=== PATIENT | female | born 1985 | race African-American/Black ===

== ENCOUNTER 2016-10-12 11:55 | Emergency (ER) | payer BC ==
[2016-10-12] MEDS ORDERED: ACETAMINOPHEN 325 MG TABLET PO ONE (12:54)
--- NOTE | 2016-10-12 12:54 | ER Document Report ---
ED Medical Screen (RME) - General Stated Complaint: BACK PAIN Time seen by provider: 12:54 Mode of Arrival: Ambulatory Information source: Patient Notes: 31-year-old female picked up her son yesterday at 2:30 in the afternoon causing a strain to her left lower thoracic lumbar back. She took Motrin this morning. Hurts when she moves. I have greeted and performed a rapid initial assessment of this patient. A comprehensive ED assessment, evaluation of the patient, analysis of test results , and completion of the medical decision making process will be contacted by additional ED providers. TRAVEL OUTSIDE OF THE [place] IN LAST 30 DAYS: No - Related Data Allergies/Adverse Reactions: amoxicillin [Amoxicillin] Adverse Reaction (Verified 10/12/16 12:53) Past Medical History Past Surgical History: Reports: Hx Section - Immunizations Immunizations up to date: Yes Hx Diphtheria, Pertussis, Tetanus Vaccination: Yes - 2007 Physical Exam - Vital signs Vitals: Temp Pulse Resp BP Pulse Ox 98.4 F 68 14 115/64 100 10/12/16 12:04 10/12/16 12:04 10/12/16 12:04 10/12/16 12:04 10/12/16 12:04 Course - Vital Signs Vital signs: Temp Pulse Resp BP Pulse Ox 98.4 F 68 14 115/64 100 10/12/16 12:04 10/12/16 12:04 10/12/16 12:04 10/12/16 12:04 10/12/16 12:04
--- NOTE | 2016-10-12 14:45 | ER Document Report ---
ED Neck/Back Problem - General Chief Complaint: Back Pain Stated Complaint: BACK PAIN Mode of Arrival: Ambulatory Notes: 31-year-old female presents to ED for back pain and lower back after picking up her son yesterday about 2:30 in the afternoon. She states she took some 400 mg Motrin this morning and her back still hurts some. TRAVEL OUTSIDE OF THE [place] IN LAST 30 DAYS: No - HPI Patient complains to provider of: Pain, Injury, Lower back Onset: Yesterday Where: Home, Indoors Onset: Sudden Timing: Better Quality of pain: Achy, Sharp Severity: Moderate Pain Level: 3 Context: Lifting Recent injury: Yes Associated symptoms: Lower back pain. denies: Incontinence, Motor loss, Numbness/tingling, Radiation to leg, Sensory loss, Unable to urinate Exacerbated by: Movement of trunk Relieved by: Nothing Similar symptoms previously: Yes Recently seen / treated by doctor: No - Related Data Allergies/Adverse Reactions: amoxicillin [Amoxicillin] Adverse Reaction (Verified 10/12/16 12:53) Past Medical History - General Information source: Patient - Social History Smoking Status: Never Smoker Cigarette use (# per day): No Chew tobacco use (# tins/day): No Smoking Education Provided: No Frequency of alcohol use: None Drug Abuse: None Occupation: call center Lives with: Family Family History: DM, Malignancy Patient has suicidal ideation: No Patient has homicidal ideation: No - Past Medical History Cardiac Medical History: Reports: None Pulmonary Medical History: Reports: None EENT Medical History: Reports: None Neurological Medical History: Reports: None Endocrine Medical History: Reports: None Renal/ Medical History: Reports: None Malignancy Medical History: Reports: None GI Medical History: Reports: None Musculoskeltal Medical History: Reports None Skin Medical History: Reports None Psychiatric Medical History: Reports: None Traumatic Medical History: Reports: None Infectious Medical History: Reports: None Past Surgical History: Reports: Hx Section - Immunizations Immunizations up to date: Yes Hx Diphtheria, Pertussis, Tetanus Vaccination: Yes - 2007 Review of Systems - Review of Systems Constitutional: No symptoms reported EENT: No symptoms reported Cardiovascular: No symptoms reported Respiratory: No symptoms reported Gastrointestinal: No symptoms reported Genitourinary: No symptoms reported Female Genitourinary: No symptoms reported Musculoskeletal: Back pain Skin: No symptoms reported Hematologic/Lymphatic: No symptoms reported Neurological/Psychological: No symptoms reported -: Yes All other systems reviewed and negative Physical Exam - Vital signs Vitals: Temp Pulse Resp BP Pulse Ox 98.4 F 68 14 115/64 100 10/12/16 12:04 10/12/16 12:04 10/12/16 12:04 10/12/16 12:04 10/12/16 12:04 Interpretation: Normal - General General appearance: Appears well, Alert - HEENT Head: Normocephalic, Atraumatic Eyes: Normal Pupils: PERRL - Respiratory Respiratory status: No respiratory distress Chest status: Nontender Breath sounds: Normal Chest palpation: Normal - Cardiovascular Rhythm: Regular Heart sounds: Normal auscultation Murmur: No - Abdominal Inspection: Normal Distension: No distension Bowel sounds: Normal Tenderness: Nontender Organomegaly: No organomegaly - Back Back: Normal, Tender - Tender bilateral muscle lower back. No: Deformity/step- off, CVA tenderness, Vertebra tenderness, Scars, Scoliosis, Wounds - Extremities General upper extremity: Normal inspection, Nontender, Normal color, Normal ROM , Normal temperature General lower extremity: Normal inspection, Nontender, Normal color, Normal ROM , Normal temperature, Normal weight bearing. No: Wyatt's sign - Neurological Neuro grossly intact: Yes Cognition: Normal Orientation: AAOx4 [place] Coma Scale Eye Opening: Spontaneous [place] Coma Scale Verbal: Oriented [place] Coma Scale Motor: Obeys Commands [place] Coma Scale Total: 15 Speech: Normal Cranial nerves: Normal Cerebellar coordination: Normal Motor strength normal: LUE, RUE, LLE, RLE Additional motor exam normals: Equal grocery bagger Babinski reflex: Normal (flexor plantar) Sensory: Normal Biceps - Reflex grade: 2 = Normal Triceps - Reflex grade: 2 = Normal Brachioradialis - Reflex grade: 2 = Normal Knee - Reflex grade: 2 = Normal - Psychological Associated symptoms: Normal affect, Normal mood - Skin Skin Temperature: Warm Skin Moisture: Dry Skin Color: Normal Course - Vital Signs Vital signs: Temp Pulse Resp BP Pulse Ox 98.4 F 68 14 115/64 100 10/12/16 12:04 10/12/16 12:04 10/12/16 12:04 10/12/16 12:04 10/12/16 12:04 Discharge - Discharge Clinical Impression: Back pain Qualifiers: Back pain location: low back pain Chronicity: acute Back pain laterality: bilateral Sciatica presence: without sciatica Qualified Code(s): M54.5 - Low back pain Condition: Stable Disposition: HOME, SELF-CARE Instructions: Stretching Exercises for the Back (OM), Use of Knvk-Krb-Kybljaf Ibuprofen (OM), Family Physicians / Practices Additional Instructions: LOW BACK PAIN: Three out of every four people will have an episode of disabling back pain during their lifetime. Most commonly the pain is due to straining of the muscles and ligaments in the low back. Usual treatment includes: (1) Rest on a firm surface. Avoid lying on your stomach. (2) Ice pack the painful area. After a few days, gentle heat may be used intermittently to relax the area, or ice packs can be continued. (3) Medication may be needed -- muscle relaxers and antiinflammatory medicines are commonly used. (4) As the back improves, exercises are prescribed to strengthen the back and abdominal muscles. Your doctor will advise you on the proper care for your back at each stage in your recovery. You may be better in a few days -- or healing may take several weeks. If new symptoms of a "herniated disc" (radiation of pain, numbness, or tingling down the back of the leg or weakness in the leg) occur, you should be re-examined. Further testing may be necessary. MUSCLE RELAXERS: Muscle relaxing medications are usually prescribed for acute muscle spasm or injury to the neck and back. They are often combined with antiinflammatory pain medication for increased relief. You may stop the muscle relaxer when the pain and stiffness have improved. Start the medication again if spasms recur. Muscle relaxers may cause drowsiness, especially with the first dose. Do not operate machinery or drive while under the effects of the medication. Most muscle relaxers last up to 24 hours. Do not combine the medication with alcohol. ICE PACKS: Apply ice packs frequently against the painful area. Many different schedules are recommended, such as "20 minutes on, 20 minutes off" or "one hour ice, two hours rest." If you need to work, you may need to go longer between ice treatments. You should plan to have the area ice packed AT LEAST one fourth of the time. The ice should be applied over the wrap, tape, or splint, or over a layer of cloth -- not directly against the skin. Some ice bags have a built-in cloth and can be put directly on the skin. WARM PACKS: After approximately two days, apply gentle heat (such as a heating pad or hot water bottle) for about 20 to 30 minutes about every two hours -- at least four times daily. Warmth and elevation will help you make a more rapid recovery , and will ease the pain considerably. Do not use HOT heat, and never apply heat for longer than 30 minutes. The continuous heat can invisibly damage skin and muscles -- even when no burn is seen on the surface. Damaged muscles can make you MORE sore. FOLLOW-UP CARE: If you have been referred to a physician for follow-up care, call the physician s office for an appointment as you were instructed or within the next two days. If you experience worsening or a significant change in your symptoms, notify the physician immediately or return to the Emergency Department at any time for re-evaluation. Prescriptions: Cyclobenzaprine HCl [Flexeril 10 mg Tablet] 10 mg PO TIDP PRN #15 tab PRN Reason: Forms: Return to Work
[2016-10-12 15:07] VITALS: BP 110/60
== END 2016-10-12 15:10 | disposition home or self-care (01) ==
LOC: ER 11:55
DX: M54.5 Low back pain (principal); X50.0XXA Overexertion from strenuous movement or load, initial encounter
CPT/HCPCS: 99283

== ENCOUNTER 2016-10-30 21:32 | Emergency (ER) | payer BC ==
--- NOTE | 2016-10-30 23:16 | ER Document Report ---
ED General - General Chief Complaint: Toe Injury Stated Complaint: TOE INJURY Notes: Patient is a 31 year old female presents with complaint of hurting her toe. She says that she was walking through a doorway aunts she felt her fourth toe on her left foot catch the inside of the door frame and felt a pop. She denies any other injuries. She has no other complaints at this time. She says it hurts only when she bears weight. TRAVEL OUTSIDE OF THE [place] IN LAST 30 DAYS: No - Related Data Allergies/Adverse Reactions: amoxicillin [Amoxicillin] Adverse Reaction (Verified 10/30/16 22:11) Past Medical History - General Last Menstrual Period: 10/06/2016 - Social History Smoking Status: Never Smoker Cigarette use (# per day): No Chew tobacco use (# tins/day): Yes Frequency of alcohol use: None Drug Abuse: None Family History: DM, Malignancy Renal/ Medical History: Denies: Hx Peritoneal Dialysis Past Surgical History: Reports: Hx Section - Immunizations Immunizations up to date: Yes Hx Diphtheria, Pertussis, Tetanus Vaccination: Yes - 2007 Review of Systems - Review of Systems Notes: My Normal Review Basic REVIEW OF SYSTEMS: CONSTITUTIONAL : Denies fever, chills, or sweats. Denies recent illness. MUSCULOSKELETAL: Left toe pain SKIN: Denies rash or skin lesions. ALL OTHER SYSTEMS REVIEWED AND NEGATIVE. Physical Exam - Vital signs Vitals: Temp Pulse Resp BP Pulse Ox 97.8 F 84 18 111/67 100 10/30/16 22:13 10/30/16 22:13 10/30/16 22:13 10/30/16 22:13 10/30/16 22:13 - Notes Notes: General Appearance: Well nourished, alert, cooperative, no acute distress, no obvious discomfort. Well-appearing. Vitals: reviewed, See vital signs table. Extremities: Normal pulses and left foot. Patient's has good capillary refill. Patient has no swelling or bruising to the foot. She does have some pain to palpation over the left fourth toe. Distal sensation intact. Skin: warm, dry, appropriate color, no rash Neuro: speech clear, oriented x 3, normal affect, responds appropriately to questions. Course - Vital Signs Vital signs: Temp Pulse Resp BP Pulse Ox 97.8 F 84 18 111/67 100 10/30/16 22:13 10/30/16 22:13 10/30/16 22:13 10/30/16 22:13 10/30/16 22:13 - Transfer of Care Notes: 10/31/16 00:16 Patient's x-ray shows oblique fracture through the proximal phalanx of the fourth toe of left foot. Patient will be treated with agustin tape and postop shoe and crutches. She's encouraged to follow up with her doctor in one week. She's encouraged return to ER shows worsening pain, swelling, or feels unwell. Patient agrees with plan and will be discharged home. Dictation of this chart was performed using voice recognition software; therefore, there may be some unintended grammatical errors. Discharge - Discharge Clinical Impression: Fracture of fourth toe, left, closed Condition: Good Disposition: HOME, SELF-CARE Additional Instructions: Please return to the ER immediately if you have worsening pain, swelling, or feel unwell. Please follow up with your doctor in 1 week for reevaluation. Please stay non weight bearing for at least 1 week. Continue to agustin tape your toe for support.
[2016-10-31 00:24] VITALS: BP 106/70
== END 2016-10-30 23:30 | disposition home or self-care (01) ==
LOC: ER 21:32
DX: S92.502A Displaced unspecified fracture of left lesser toe(s), initial encounter for closed fracture (principal); X58.XXXA Exposure to other specified factors, initial encounter
CPT/HCPCS: 99283

== ENCOUNTER 2017-11-08 16:59 | Emergency (ER) | payer BC ==
[2017-11-08 17:33] VITALS: BP 104/62
[2017-11-08] MEDS ORDERED: ONDANSETRON 4 MG TAB.RAPDIS PO ONE (19:49)
--- NOTE | 2017-11-08 19:50 | ER Document Report ---
HPI - HPI Patient complains to provider of: vomiting Pain Level: 3 Context: Patient is a 32-year-old female that comes emergency department for chief complaint of vomiting once this morning and feeling run down since she woke up this morning. She states she has generalized aches but she denies abdominal pain, flank pain, dysuria, vaginal bleeding or discharge. She also denies fever or chills. No obvious sick contacts. LMP was about 1 month ago, she states she feels like she should be on a menstrual cycle but she is not currently on her menstrual cycle. She denies any daily medications. Only past medical history reported as a . - REPRODUCTIVE Reproductive: DENIES: : Past Medical History - General Information source: Patient - Social History Smoking Status: Never Smoker Frequency of alcohol use: None Drug Abuse: None Lives with: Family Family History: DM, Malignancy - Medical History Medical History: Negative Renal/ Medical History: Denies: Hx Peritoneal Dialysis Past Surgical History: Reports: Hx Section - Immunizations Immunizations up to date: Yes Hx Diphtheria, Pertussis, Tetanus Vaccination: Yes - 2007 [facility] Provider Document - CONSTITUTIONAL General Appearance: WD/WN, No Apparent Distress - INFECTION CONTROL TRAVEL OUTSIDE OF THE [place] IN LAST 30 DAYS: No - HEENT HEENT: Atraumatic, Normal ENT Exam, Normocephalic - NECK Neck: Normal Inspection - RESPIRATORY Respiratory: Breath Sounds Normal, No Respiratory Distress O2 Sat by Pulse Oximetry: 100 - CARDIOVASCULAR Cardiovascular: Regular Rate, Regular Rhythm - GI/ABDOMEN Gastrointestinal: Abdomen Soft, Abdomen Non-Tender. negative: Abdomen Tender, Abdominal Guarding - BACK Back: Normal Inspection - MUSCULOSKELETAL/EXTREMETIES Musculoskeletal/Extremeties: MAEW, FROM, Non-Tender - NEURO Level of Consciousness: Awake, Alert, Appropriate - DERM Integumentary: Warm, Dry, No Rash Course - Re-evaluation Re-evalutation: Patient reporting some nausea, denies abdominal pain, unremarkable physical exam , unremarkable vital signs. Aches membranes are still moist. Because of lack of pain complaints and only vague nausea, treating with Zofran, checking urine, test, hydrate. 11/09/17 Urine is contaminated sample, unable to tell if this is an infection or not. No dysuria, flank pain, fever, or suprapubic pain. Very soft benign abdomen. Well-appearing patient. Unremarkable vital signs. Culture was placed, test is negative. Patient taking oral hydration after Zofran. She states she feels good and she is ready to go home. Very low suspicion of acute abdomen or bacterial infection. Most likely viral. Discussed expectations, follow-up, return precautions. Patient states satisfaction and agreement. - Vital Signs Vital signs: Temp Pulse Resp BP Pulse Ox 98.6 F 84 17 104/62 100 11/08/17 17:32 11/08/17 17:32 11/08/17 17:32 11/08/17 17:32 11/08/17 17:32 Discharge - Discharge Clinical Impression: Weakness Nausea and vomiting Qualifiers: Vomiting type: unspecified Vomiting Intractability: non-intractable Qualified Code(s): R11.2 - Nausea with vomiting, unspecified Condition: Stable Disposition: HOME, SELF-CARE Additional Instructions: Your symptoms, evaluation, and workup are most suggestive that this is a viral syndrome that should resolve with time. Rest, drink plenty of fluids, take Zofran for nausea, start with bland foods and progress. Follow-up with primary care. Return if you worsen including uncontrolled vomiting, spiking fever, severe abdominal pain, or any other concerning or worsening symptoms. Prescriptions: Ondansetron [Zofran Odt 4 mg Tablet] 1 - 2 tab PO Q4H PRN #20 tab.rapdis PRN Reason: For Nausea/Vomiting Forms: Return to Work
[2017-11-08 20:05] LABS: APPEARANCE,URINE CLOUDY; BILIRUBIN,URINE NEGATIVE (NEGATIVE); COLOR,URINE YELLOW; GLUCOSE, URINE NEGATIVE (NEGATIVE); KETONES,URINE NEGATIVE (NEGATIVE); LEUKOCYTE ESTERASE,URINE SMALL (NEGATIVE); NITRITE,URINE NEGATIVE (NEGATIVE); PROTEIN,URINE 30 mg/dL (NEGATIVE); URINE SPECIFIC GRAVITY 1.028
[2017-11-08] MEDS ORDERED: ONDANSETRON ODT 4 MG TAB (6 TAB/ER DISP) PO PRN (20:57)
== END 2017-11-08 21:28 | disposition home or self-care (01) ==
LOC: ER 16:59
DX: R53.1 Weakness (principal); R11.2 Nausea with vomiting, unspecified; M79.1 Myalgia
CPT/HCPCS: 99283; 87086; 81025; 81001; S0119

== ENCOUNTER 2018-02-23 10:01 | Emergency (ER) | payer BC ==
[2018-02-23 10:09] VITALS: BP 114/74
--- NOTE | 2018-02-23 10:22 | ER Document Report ---
HPI - HPI Patient complains to provider of: Sore throat Pain Level: 4 Context: Patient is a healthy 32-year-old female complaining of sore throat 1 day, low back pain 1 day. Patient does have a slight cough and pressure in both ears. Patient denies any urinary symptoms, no dysuria, urgency, frequency or small voids. No fever. No known sick contacts. Associated Symptoms: None Exacerbated by: Denies Relieved by: Denies - EENT EENT: REPORTS: Sore Throat, Ear Pain - RESPIRATORY Respiratory: REPORTS: Coughing - Dry, nonproductive - REPRODUCTIVE Reproductive: DENIES: : Past Medical History - General Information source: Patient - Social History Smoking Status: Never Smoker Frequency of alcohol use: None Drug Abuse: None Lives with: Family Family History: DM, Malignancy - Medical History Medical History: Negative Renal/ Medical History: Denies: Hx Peritoneal Dialysis Past Surgical History: Reports: Hx Section - Immunizations Immunizations up to date: Yes Hx Diphtheria, Pertussis, Tetanus Vaccination: Yes - 2008 [facility] Provider Document - CONSTITUTIONAL Agree With Documented VS: Yes Exam Limitations: No Limitations - INFECTION CONTROL TRAVEL OUTSIDE OF THE [place] IN LAST 30 DAYS: No - HEENT HEENT: Atraumatic, PERRLA, Pharyngeal Tenderness, Pharyngeal Erythema. negative : Pharyngeal Exudate Notes: No trismus, no difficulty talking or swallowing - NECK Neck: Normal Inspection, Supple - RESPIRATORY Respiratory: Breath Sounds Normal, No Respiratory Distress - CARDIOVASCULAR Cardiovascular: Regular Rate, Regular Rhythm - GI/ABDOMEN Gastrointestinal: Abdomen Soft, Abdomen Non-Tender - BACK Back: Abnormal Inspection Notes: Mild lumbar paraspinal tenderness. No vertebral tenderness. no CVA tenderness - MUSCULOSKELETAL/EXTREMETIES Musculoskeletal/Extremeties: SOFY FROM, Non-Tender Course - Re-evaluation Re-evalutation: 02/23/18 10:20 History and physical are consistent with a sore throat. There are no signs and symptoms of airway compromise, peritonsillar abscess or Scott angina, low suspicion for strep based on exam and presentation. I will provide a short course of oral steroids and recommend [id number] treatment with decongestant. Patient is agreeable with plan is stable for discharge - Vital Signs Vital signs: Temp Pulse Resp BP Pulse Ox 98.8 F 81 20 114/74 100 02/23/18 10:07 02/23/18 10:07 02/23/18 10:07 02/23/18 10:07 02/23/18 10:07 Discharge - Discharge Clinical Impression: Sore throat Condition: Stable Disposition: HOME, SELF-CARE Instructions: Sore Throat ([facility]), Steroid Medication Additional Instructions: Please take medication as prescribed You may use [id number] cough cold medication such as Tylenol sore throat Lozenges for comfort Follow-up with your primary care symptoms persist Prescriptions: Prednisone 20 mg PO BID #16 tablet Forms: Return to Work
== END 2018-02-23 10:30 | disposition home or self-care (01) ==
LOC: ER 10:01
DX: M54.5 Low back pain (principal); J02.9 Acute pharyngitis, unspecified; R05 Cough; H92.03 Otalgia, bilateral
CPT/HCPCS: 99282

== ENCOUNTER 2019-03-22 18:51 | Emergency (ER) | payer BC ==
[2019-03-22] MEDS ORDERED: ACETAMINOPHEN 325 MG TABLET PO ONE (19:41)
--- NOTE | 2019-03-22 20:14 | ER Document Report ---
HPI - HPI Time Seen by Provider: 03/22/19 19:00 Pain Level: 4 Notes: 33-year female presents the ED for complaints of sore throat that started last night, reports dry cough that started today as well as body aches and crying over the last few hours. Denies any rashes. Has not tried anything [id number]. Worse with time, has not been around sick contacts. Eating and drinking without issues. No history of asthma or allergies denies chest pain,palpitations, shortness of breath, dyspnea, nausea, vomiting, diarrhea, abdominal pain, hematuria,blurred vision, double vision, loss of vision, speech changes, LH, dizziness, syncope, headaches, wheezing, neck pain, weakness, bowel or bladder dysfunction, saddle anesthesia, numbness or tingling in bilateral upper or lower extremities equally, muscle paralysis, weakness in bilateral upper or lower extremities equally or rash. - REPRODUCTIVE Reproductive: DENIES: : Past Medical History - General Information source: Patient - Social History Smoking Status: Unknown if Ever Smoked Family History: DM, Malignancy Renal/ Medical History: Denies: Hx Peritoneal Dialysis Past Surgical History: Reports: Hx Section - Immunizations Immunizations up to date: Yes Hx Diphtheria, Pertussis, Tetanus Vaccination: Yes - 2007 [facility] Provider Document - CONSTITUTIONAL Agree With Documented VS: Yes Exam Limitations: No Limitations Notes: PHYSICAL EXAMINATION: GENERAL: Well-appearing, well-nourished and in no acute distress. HEAD: Atraumatic, normocephalic. EYES: Pupils equal round and reactive to light, extraocular movements intact, sclera anicteric, conjunctiva are normal. ENT: TM with effusion bilaterally, intact. nares patent, oropharynx with erythema without exudates. Moist mucous membranes. NECK: Normal range of motion, supple without lymphadenopathy LUNGS: Breath sounds clear to auscultation bilaterally and equal. No wheezes rales or rhonchi. HEART: Regular rate and rhythm without murmurs ABDOMEN: Soft, nontender, normoactive bowel sounds. No guarding, no rebound. No masses appreciated. EXTREMITIES: Normal range of motion, no pitting or edema. No cyanosis. NEUROLOGICAL: No focal neurological deficits. Moves all extremities spontaneously and on command. PSYCH: Normal mood, normal affect. SKIN: Warm, Dry, normal turgor, no rashes or lesions noted. - INFECTION CONTROL TRAVEL OUTSIDE OF THE [place] IN LAST 30 DAYS: No Course - Re-evaluation Re-evalutation: 03/22/19 19:52 33-year female vitals stabl, noted temperature, given Tylenol for fever of 101.3. Rapid strep is negative on current examination patient does have exudative pharyngitis,Presentation of several days of sore throat in an otherwise well-appearing patient. History and exam are not consistent with a retropharyngeal abscess or peritonsillar abscess. Airway is patent. No difficulty handling oral secretions. Vitals within normal limits. Patient has been treated with an IM dose of penicillin. At this time will discharge with return precautions and follow-up recommendations. Verbal discharge instructions given a the bedside and opportunity for questions given. Medication warnings reviewed. Patient is in agreement with this plan and has verbalized understanding of return precautions and the need for primary care follow-up in the next 24-48 hours - Vital Signs Vital signs: Temp Pulse Resp BP Pulse Ox 101.3 F H 86 16 117/71 100 03/22/19 18:55 03/22/19 18:55 03/22/19 18:55 03/22/19 18:55 03/22/19 18:55 Discharge - Discharge Clinical Impression: Exudative pharyngitis Condition: Stable Disposition: HOME, SELF-CARE Instructions: Sore Throat ([facility]), Strep Throat ([facility]) Additional Instructions: Return immediately for any new or worsening symptoms. Follow up with primary care provider, call tomorrow to make followup appointment. Prescriptions: Azithromycin [Zithromax 250 mg Tablet] 250 mg PO ASDIR PRN #6 tablet PRN Reason: Forms: Return to Work Referrals: KIANA POLK MD [COMMUNITY BASED STAFF] - Follow up as needed
[2019-03-22 21:03] VITALS: BP 119/63
== END 2019-03-22 21:04 | disposition home or self-care (01) ==
LOC: ER 18:51
DX: J02.9 Acute pharyngitis, unspecified (principal); R05 Cough
CPT/HCPCS: 87070; 87077; 87880; 99283

== ENCOUNTER 2019-08-11 23:04 | Emergency (ER) | payer SELFPAY ==
[2019-08-12 00:50] LABS: ABSOLUTE LYMPHOCYTES (AUTO) 2.5 10^3/uL (0.5-4.7); ABSOLUTE MONOCYTES (AUTO) 0.7 10^3/uL (0.1-1.4); ABSOLUTE NEUT (AUTO) 6.3 10^3/uL (1.7-8.2); BASOPHILS % (AUTO) 0.5 % (0-2); EOSINOPHILS % (AUTO) 0.5 % (0-6); HEMOGLOBIN 12.1 g/dL (12.0-15.5); LYMPHOCYTES % (AUTO) 26.2 % (13-45); MEAN CORPUSCULAR HEMOGLOBIN 26.5 pg (27.0-33.4); MEAN CORPUSCULAR HGB CONC 32.8 g/dL (32.0-36.0); MEAN CORPUSCULAR VOLUME 81 fl (80-97); MONOCYTES % (AUTO) 6.9 % (3-13); PLATELET COUNT 400 10^3/uL (150-450); RED BLOOD COUNT 4.59 10^6/uL (3.72-5.28); RED CELL DISTRIBUTION WIDTH 15.9 % (11.5-14.0); SEGMENTED NEUTROPHILS % (AUTO) 65.9 % (42-78); TOTAL CELLS COUNTED % (AUTO) 100 %; WHITE BLOOD COUNT 9.6 10^3/uL (4.0-10.5)
[2019-08-12 00:53] LABS: APPEARANCE,URINE SLIGHTLY-CLOUDY; BILIRUBIN,URINE NEGATIVE (NEGATIVE); COLOR,URINE YELLOW; GLUCOSE, URINE NEGATIVE (NEGATIVE); KETONES,URINE NEGATIVE (NEGATIVE); LEUKOCYTE ESTERASE,URINE NEGATIVE (NEGATIVE); NITRITE,URINE NEGATIVE (NEGATIVE); PROTEIN,URINE NEGATIVE (NEGATIVE); URINE SPECIFIC GRAVITY 1.017; UROBILINOGEN,URINE NEGATIVE mg/dL (<2.0)
[2019-08-12 01:30] LABS: ALBUMIN 3.9 g/dL (3.5-5.0); ALKALINE PHOSPHATASE 92 U/L (38-126); ANION GAP 10 (5-19); ASPARTATE AMINO TRANSFERASE 18 U/L (14-36); BILIRUBIN,DIRECT 0.1 mg/dL (0.0-0.4); BILIRUBIN,TOTAL 0.5 mg/dL (0.2-1.3); BLOOD UREA NITROGEN 13 mg/dL (7-20); CALCIUM 10.6 mg/dL (8.4-10.2); CARBON DIOXIDE 23 mmol/L (22-30); CHLORIDE 106 mmol/L (98-107); GLUCOSE 86 mg/dL (75-110); POTASSIUM 4.2 mmol/L (3.6-5.0); TOTAL PROTEIN 7.2 g/dL (6.3-8.2)
[2019-08-12] MEDS ORDERED: NORMAL SALINE 1000 ML 1,000 ML IV ONE (07:27)
[2019-08-12] MEDS ORDERED: ONDANSETRON HCL INJ/PF 4 MG/2 ML SDV IV ONE (07:27)
[2019-08-12] MEDS ORDERED: ACETAMINOPHEN 325 MG TABLET PO ONE (07:28)
--- NOTE | 2019-08-12 07:34 | ER Document Report ---
ED Neck/Back Problem - General Chief Complaint: Back Pain Stated Complaint: NAUSEA, BACK PAIN Time Seen by Provider: 08/12/19 07:17 Notes: Ms. Matt is 33 yo F presenting to the ED for back pain. Patient states that she has 3-year-old son which was delivered at 37 weeks after having an abnormal tracing and she was GBS positive at that point in time. She states she had an last year. Patient states that her LMP was June 02 or and lasted for 10 to 14 days. She states that was her LMP. She was previously started on control but when she did not receive a menstrual cycle in June, she took a test this past Wednesday. She states that the test was positive at home. She endorses a small amount of white vaginal discharge, no bleeding or spotting. Patient endorses mid lumbar back p ain which radiates to bilateral sides. She states the pain is worse with bending over her various positions. She denies any fevers or chills. She endorses nausea with some retching and no significant vomiting or diarrhea. She also endorses increased urinary frequency without any dysuria or foul-smelling urine. She denies any known trauma to her back, falls or lifting something heavy, states she does lift her son. TRAVEL OUTSIDE OF THE [place] IN LAST 30 DAYS: No - Related Data Allergies/Adverse Reactions: amoxicillin [Amoxicillin] Allergy (Verified 08/12/19 07:25) Past Medical History - Social History Smoking Status: Never Smoker Chew tobacco use (# tins/day): No Frequency of alcohol use: None Family History: DM, Malignancy Patient has suicidal ideation: No Patient has homicidal ideation: No Renal/ Medical History: Denies: Hx Peritoneal Dialysis Past Surgical History: Reports: Hx Section - Immunizations Immunizations up to date: Yes Hx Diphtheria, Pertussis, Tetanus Vaccination: Yes - 2007 Review of Systems - Review of Systems Constitutional: See HPI EENT: No symptoms reported Cardiovascular: No symptoms reported Respiratory: No symptoms reported Gastrointestinal: No symptoms reported Genitourinary: See HPI Female Genitourinary: See HPI Musculoskeletal: See HPI Skin: No symptoms reported Hematologic/Lymphatic: No symptoms reported Neurological/Psychological: No symptoms reported Physical Exam - Vital signs Vitals: Temp Pulse Resp BP Pulse Ox 98.9 F 73 18 117/62 100 08/11/19 23:08 08/11/19 23:08 08/11/19 23:08 08/11/19 23:08 08/11/19 23:08 Interpretation: Normal - General General appearance: Appears well, Alert - HEENT Head: Normocephalic, Atraumatic Eyes: Normal Pupils: PERRL - Respiratory Respiratory status: No respiratory distress Chest status: Nontender Breath sounds: Normal Chest palpation: Normal - Cardiovascular Rhythm: Regular Heart sounds: Normal auscultation Murmur: No - Abdominal Inspection: Normal Distension: No distension Bowel sounds: Normal Tenderness: Nontender Organomegaly: No organomegaly - Back Back: Normal, Other - Low lumbar back pain at L2-L3 as well as bilateral paraspinous tenderness palpation. No CVA tenderness bilaterally. No step-offs or deformities. - Extremities General upper extremity: Normal inspection, Nontender, Normal color, Normal ROM, Normal temperature General lower extremity: Normal inspection, Nontender, Normal color, Normal ROM, Normal temperature, Normal weight bearing. No: Wyatt's sign - Neurological Neuro grossly intact: Yes Cognition: Normal Orientation: AAOx4 Liang Coma Scale Eye Opening: Spontaneous Liang Coma Scale Verbal: Oriented Liang Coma Scale Motor: Obeys Commands Liang Coma Scale Total: 15 Speech: Normal Motor strength normal: LUE, RUE, LLE, RLE Sensory: Normal - Psychological Associated symptoms: Normal affect, Normal mood - Skin Skin Temperature: Warm Skin Moisture: Dry Skin Color: Normal Course - Re-evaluation Re-evalutation: Patient is generally well-appearing nontoxic. Initial vitals within normal limits. Differential diagnosis includes UTI, muscular strain, ectopic , IUP 08/12/19 07:34 Patient had labs out in triage many hours ago. CBC and CMP all within normal limits. UA is negative for infection. Beta quant is greater than 160,000. Patient will be ordered for IV fluids for hydration, likely causing her muscular back pain. No step-offs, deformities, or red flags such as urinary incontinence, difficulty ambulating, or saddle paresthesias to suggest any acute vertebral issue or cord compression. Patient ordered for ultrasound to rule out ectopic. No vaginal bleeding to suggest Rh incompatibility however patient does have some white vaginal discharge so she was ordered for GC. 08/12/19 10:14 Patient would prefer not to do vaginal examination at this point in time. She states the discharge is white in nature and she is only sexually active with one partner. GC is actively pending. Patient's back pain has improved with IV fluids, Tylenol and heating pad. Patient ultrasound shows a gestational sac and yolk sac without a pole. Approximately 6 weeks 1 day. Patient did with all this information. Will DC after IV fluids have completed. Patient recommended to follow-up with her OB who she states is [facility]. Patient given return precautions. - Vital Signs Vital signs: Temp Pulse Resp BP Pulse Ox 97.8 F 72 18 121/65 100 08/12/19 04:57 08/12/19 04:57 08/12/19 04:57 08/12/19 04:57 08/12/19 00:15 - Laboratory Result Diagrams: 08/12/19 00:30 08/12/19 00:30 Laboratory results interpreted by me: 08/12/19 08/12/19 00:30 00:30 MCH 26.5 L RDW 15.9 H Calcium 10.6 H Beta HCG, Quant 03373.00 H Discharge - Discharge Clinical Impression: First trimester , Nausea/vomiting in Back pain affecting Qualifiers: Trimester: first trimester Qualified Code(s): O99.89 - Other specified diseases and conditions complicating , childbirth and the puerperium Condition: Good Disposition: HOME, SELF-CARE Instructions: Antinausea Medication ([facility]), Low Back Pain ([facility]), Muscle Strain ([facility]), Warm Packs ([facility]) Additional Instructions: I would recommend that you use the Zofran dissolving tablets under your tongue every 8 hours as needed for nausea. It is important that you drink plenty of water and stay well-hydrated. Apply heat to your low back and perform slow range of motion exercises after the heat has been on for at least 30 minutes. You can use Tylenol 650 mg every 6-8 hours as needed for pain control. It is [facility] Prescriptions: Ondansetron [Zofran Odt 4 mg Tablet] 1 tab PO TID PRN #15 tab.rapdis PRN Reason: For Nausea/Vomiting
--- NOTE | 2019-08-12 08:52 | RADIOLOGY REPORT (SQ) ---
EXAM DESCRIPTION: U/S 1TRIMESTER/1GEST W/DOPPLER COMPLETED DATE/TIME: 08/12/2019 8:39 am REASON FOR STUDY: back pain, 1st trimester preg COMPARISON: None. TECHNIQUE: Transabdominal and endovaginal static and realtime grayscale images acquired of the pelvi s. Additional selected spectral and color Doppler images recorded. All images stored on PACs. CLINICAL AGE: 8 week 3 day bHC,055 LIMITATIONS: None. FINDINGS: UTERUS: No masses. No anomalies. GESTATIONAL SAC: Normal shape. YOLK SAC: Yes. POLE: No. RIGHT ADNEXA: Normal ovary with normal vascular flow. No adnexal free fluid. 2 cm cyst. LEFT ADNEXA: Normal ovary with normal vascular flow. No adnexal free fluid. No adnexal masses. FREE FLUID: None. OTHER: Cervix measures 2.9 cm. IMPRESSION: Finding suggestive of early IUP. Gestational sac with yolk sac noted but no pole yet identified. Correlates with a 6 week 1 day gestation. Surveillance followup to document normal development recommended. Trimester of : First trimester - 0 to 13 weeks. TECHNICAL DOCUMENTATION: JOB ID: [id number] [employer]- All Rights Reserved Reading location - IP/workstation name: [email or web address]
[2019-08-12 10:47] LABS: CHLAM PCR NOT DETECTED (NOT DETECT)
[2019-08-12 11:34] VITALS: BP 110/59
== END 2019-08-12 11:34 | disposition home or self-care (01) ==
LOC: ER 23:04
DX: O21.8 Other vomiting complicating pregnancy (principal); O99.89 Other specified diseases and conditions complicating pregnancy, childbirth and the puerperium; M54.9 Dorsalgia, unspecified; Z3A.01 Less than 8 weeks gestation of pregnancy
CPT/HCPCS: 86900; 86901; 36415; 84702; 83690; 85025; 80053; 81001; 87491; 87591; 76801; 93976; J2405; J7030; 96361; 96374; 99284

== ENCOUNTER → 2019-09-11 | Outpatient (CLI) | payer SELFPAY ==
--- NOTE | 2019-09-11 15:40 | RADIOLOGY REPORT (SQ) ---
EXAM DESCRIPTION: U/S [id number] TRNABD 1GES W/ODOP COMPLETED DATE/TIME: 09/11/2019 3:27 pm REASON FOR STUDY: (Z34.81)ENCOUNTER FOR SUPRVSN OF NORMAL , FIRST TRIMESTER Z34.81 ENCOUNT ER FOR SUPRVSN OF NORMAL , FIRST TRIM COMPARISON: None. TECHNIQUE: Transabdominal static and realtime grayscale images acquired of the pelvis. Additional se lected spectral and color Doppler images recorded. All images stored on PACs. CG: Not available. CLINICAL DATES: Unknown. LIMITATIONS: None. FINDINGS: FETUS: Single Living intrauterine . ULTRASOUND EGA: 10 weeks 0 days. ULTRASOUND TERESA: 04/08/2020 EFW: Not applicable less than 20 weeks. CRL: 3.1 cm. FHR: 173 beats per minute. PLACENTA: Not yet developed due to early gestation. SUBCHORIONIC BLEED: No. SIZE OF BLEED: Not applicable. UTERUS: No significant masses. There is a small hypoechoic structure measures just over 1 cm. CERVICAL LENGTH: 2.0 cm. Closed. RIGHT ADNEXA: Small complex right ovarian cyst measured 2.7 x 1.9 x 1.9 cm. Normal flow. No adnexal free fluid. No adnexal masses. LEFT ADNEXA: Normal ovary with normal vascular flow. No adnexal free fluid. No adnexal masses. FREE FLUID: None. OTHER: No other significant finding. IMPRESSION: LIVING INTRAUTERINE . EGA 10 WEEKS 0 DAYS. Trimester of : First trimester - 0 to 13 weeks. TECHNICAL DOCUMENTATION: JOB ID: [id number] [employer]- All Rights Reserved Reading location - IP/workstation name: [email or web address]
== END ==
LOC: RAD 14:46
PROVIDERS: ATTEND Nurse Practitioner Family
DX: O34.81 Maternal care for other abnormalities of pelvic organs, first trimester (principal); N83.291 Other ovarian cyst, right side; Z3A.10 10 weeks gestation of pregnancy
CPT/HCPCS: 76801

== ENCOUNTER 2019-09-29 22:43 | Emergency (ER) | payer OTHER ==
[2019-09-30 01:10] LABS: ABSOLUTE LYMPHOCYTES (AUTO) 2.4 10^3/uL (0.5-4.7); ABSOLUTE MONOCYTES (AUTO) 0.6 10^3/uL (0.1-1.4); ABSOLUTE NEUT (AUTO) 6.1 10^3/uL (1.7-8.2); BASOPHILS % (AUTO) 0.5 % (0-2); EOSINOPHILS % (AUTO) 0.3 % (0-6); HEMATOCRIT 36.4 % (36.0-47.0); HEMOGLOBIN 12.3 g/dL (12.0-15.5); LYMPHOCYTES % (AUTO) 26.3 % (13-45); MEAN CORPUSCULAR HEMOGLOBIN 27.1 pg (27.0-33.4); MEAN CORPUSCULAR HGB CONC 33.7 g/dL (32.0-36.0); MEAN CORPUSCULAR VOLUME 80 fl (80-97); MONOCYTES % (AUTO) 6.3 % (3-13); PLATELET COUNT 435 10^3/uL (150-450); RED BLOOD COUNT 4.53 10^6/uL (3.72-5.28); RED CELL DISTRIBUTION WIDTH 15.6 % (11.5-14.0); SEGMENTED NEUTROPHILS % (AUTO) 66.6 % (42-78); TOTAL CELLS COUNTED % (AUTO) 100 %; WHITE BLOOD COUNT 9.1 10^3/uL (4.0-10.5)
[2019-09-30 01:20] LABS: APPEARANCE,URINE TURBID; BILIRUBIN,URINE NEGATIVE (NEGATIVE); COLOR,URINE YELLOW; GLUCOSE, URINE NEGATIVE (NEGATIVE); KETONES,URINE NEGATIVE (NEGATIVE); LEUKOCYTE ESTERASE,URINE NEGATIVE (NEGATIVE); NITRITE,URINE NEGATIVE (NEGATIVE); PROTEIN,URINE NEGATIVE (NEGATIVE); URINE SPECIFIC GRAVITY 1.014; UROBILINOGEN,URINE NEGATIVE mg/dL (<2.0)
[2019-09-30 01:26] LABS: ALBUMIN 3.6 g/dL (3.5-5.0); ALKALINE PHOSPHATASE 74 U/L (38-126); ANION GAP 6 (5-19); ASPARTATE AMINO TRANSFERASE 18 U/L (14-36); BILIRUBIN,TOTAL 0.3 mg/dL (0.2-1.3); BLOOD UREA NITROGEN 7 mg/dL (7-20); CALCIUM 10.5 mg/dL (8.4-10.2); CARBON DIOXIDE 24 mmol/L (22-30); CHLORIDE 107 mmol/L (98-107); GLUCOSE 83 mg/dL (75-110); TOTAL PROTEIN 6.6 g/dL (6.3-8.2)
--- NOTE | 2019-09-30 06:34 | RADIOLOGY REPORT (SQ) ---
EXAM: US Abdomen Limited, Appendix EXAM DATE/TIME: 09/30/2019 6:00 AM CLINICAL HISTORY: The patient is 34 years old and is Female; lower abd pain, 12 wk .eval appendix TECHNIQUE: Real-time ultrasound of the right lower quadrant with image documentation. COMPARISON: No relevant prior studies available. FINDINGS: APPENDIX: The appendix was not definitively visualized. FREE FLUID: No free fluid or focal fluid collections appreciated in the right lower quadrant or right upper quadrant. RIGHT KIDNEY: Single image of the right kidney demonstrates no evidence of hydronephrosis. IMPRESSION: The appendix was not visualized. No obvious acute findings.
--- NOTE | 2019-09-30 06:42 | RADIOLOGY REPORT (SQ) ---
EXAM: US First Trimester , Transabdominal EXAM DATE/TIME: 09/30/2019 5:45 AM CLINICAL HISTORY: The patient is 34 years old and is Female; lower abd pain, 12 wk TECHNIQUE: Real-time transabdominal obstetrical ultrasound of the maternal pelvis and a first trimester with image documentation. COMPARISON: OB ultrasound from 09/11/2019 FINDINGS: GESTATION: There is a single intrauterine gestational sac containing a pole. Estimated gestational age based on crown-rump length is 12 weeks 3 days. TERESA by this ultrasound is a 08/18/2020. heart rate is 147 bpm. UTERUS/CERVIX: The uterus measures 10.7 x 7.7 x 5.5 cm. No myometrial mass. The cervix measures 3.1 cm in length and is closed. OVARIES: The right ovary measures 5.2 x 2.5 x 2.6 cm. There is a simple right ovarian cyst measuring 2.2 x 1.3 x 1.8 cm. Arterial and venous blood flow is present in the right ovary, with resistive index of 0.58. The left ovary is not definitively visualized. No obvious adnexal mass. FREE FLUID: Trace free fluid adjacent to the right ovary. IMPRESSION: 1. Single viable intrauterine with estimated gestational age of 12 weeks 3 days on this exam. 2. The left ovary was not visualized. Simple right ovarian cyst noted. No follow-up imaging is recommended. Reference: Radiology 2010 Apr;256(3):943-54. 3. Trace free fluid adjacent to the right ovary.
--- NOTE | 2019-09-30 07:06 | ER Document Report ---
ED General - General Chief Complaint: Lower Abdominal Pain Stated Complaint: ABDOMINAL PRESSURE Time Seen by Provider: 09/30/19 04:53 Primary Care Provider: [facility] [Provider Group] - Follow up as needed REPLACED BY [facility] [Provider Group] - Follow up as needed Notes: 34-year-old female presents for lower abdominal pain for the past 2 days. Patient states it is intermittent and feels like her period is about to start. Patient states she is about 12 weeks . Patient is followed by health department. Patient states nothing makes the pain better nothing makes it worse. Patient states she has had nausea/vomiting since she became which is now improved the last 4 to 5 days. Patient denies any fever, chest pain, shortness of breath, dysuria, vaginal bleeding, vaginal discharge. TRAVEL OUTSIDE OF THE [place] IN LAST 30 DAYS: No - Related Data Allergies/Adverse Reactions: amoxicillin [Amoxicillin] Allergy (Verified 08/12/19 07:25) Home Medications: Vitamins Past Medical History - Social History Smoking Status: Never Smoker Frequency of alcohol use: None Drug Abuse: None Family History: DM, Malignancy Patient has suicidal ideation: No Patient has homicidal ideation: No Renal/ Medical History: Denies: Hx Peritoneal Dialysis Past Surgical History: Reports: Hx Section - Immunizations Immunizations up to date: Yes Hx Diphtheria, Pertussis, Tetanus Vaccination: Yes - 2007 Review of Systems - Review of Systems Notes: Constitutional: Negative for fever. HENT: Negative for sore throat. Eyes: Negative for visual changes. Cardiovascular: Negative for chest pain. Respiratory: Negative for shortness of breath. Gastrointestinal: Positive for abdominal pain. Negative for diarrhea. Genitourinary: Negative for dysuria. Musculoskeletal: Negative for back pain. Skin: Negative for rash. Neurological: Negative for headaches, weakness or numbness. 10 point ROS negative except as marked above and in HPI. Physical Exam - Vital signs Vitals: Temp Pulse Resp BP Pulse Ox 98.2 F 74 16 116/55 L 100 09/29/19 23:31 09/29/19 23:31 09/29/19 23:31 09/29/19 23:31 09/29/19 23:31 - Notes Notes: GENERAL: Well-appearing, well-nourished and in no acute distress. HEAD: Atraumatic, normocephalic. EYES: Extraocular movements intact, sclera anicteric, conjunctiva are normal. NECK: Normal range of motion, supple without lymphadenopathy or JVD. ABDOMEN: Soft, nontender. No guarding, no rebound. No masses appreciated. PELVIC: Declined EXTREMITIES: Normal range of motion, no pitting or edema. No clubbing or cyanosis. NEUROLOGICAL: Cranial nerves II through XII grossly intact. Normal speech, normal gait. PSYCH: Normal mood, normal affect. SKIN: Warm, Dry, normal turgor, no rashes or lesions noted. Course - Re-evaluation Re-evalutation: 09/30/19 nontoxic, well-appearing 34-year-old female who is approximately 12 weeks presents with lower pelvic/abdominal cramping. Denies any fever, vaginal bleeding, vaginal discharge, chest pain, shortness of breath. Abdomen soft nontender. Abdomen ultrasound was normal. Lab work was reassuring. UA was negative for hematuria or urinary tract infection. Pelvic ultrasound shows IUP at 12 weeks 3 days. Pain most likely consistent with round ligament pain. Patient encouraged to follow-up with her [facility]. Strict return precautions given. Patient voices understanding and agrees with plan of care. - Vital Signs Vital signs: Temp Pulse Resp BP Pulse Ox 98.2 F 74 16 116/55 L 100 09/29/19 23:31 09/29/19 23:31 09/29/19 23:31 09/29/19 23:31 09/29/19 23:31 - Laboratory Result Diagrams: 09/30/19 00:57 09/30/19 00:57 Laboratory results interpreted by me: 09/30/19 09/30/19 00:57 00:57 RDW 15.6 H Creatinine 0.51 L Calcium 10.5 H Beta HCG, Quant 726705.00 H Discharge - Discharge Clinical Impression: Round ligament pain, 12 weeks gestation of Condition: Stable Disposition: HOME, SELF-CARE Instructions: Pelvic Pain in and Round Ligament Pain ([facility]) Additional Instructions: Please take Tylenol as needed for pain. Your ultrasound of your pelvis showed single at 12 weeks 3 days inside the uterus with a heart rate of 147 bpm which is normal. Your abdomen ultrasound was normal. Please follow-up with your [facility] in 3 to 5 weeks. Return immediately to ER if you start having any worsening symptoms, including worsening abdominal pain, fever, vomiting not controlled by medication, fever, chest pain, shortness of breath, or any other symptoms that are concerning to you. Forms: Return to Work Referrals: [facility] [Provider Group] - Follow up as needed [facility] [Provider Group] - Follow up as needed
[2019-09-30 07:34] VITALS: BP 124/68
== END 2019-09-30 07:33 | disposition home or self-care (01) ==
LOC: ER 22:43
DX: O26.891 Other specified pregnancy related conditions, first trimester (principal); R10.2 Pelvic and perineal pain; Z3A.12 12 weeks gestation of pregnancy; Z79.899 Other long term (current) drug therapy; Z88.0 Allergy status to penicillin
CPT/HCPCS: 36415; 76705; 76801; 80053; 81001; 83690; 84702; 85025; 93976; 99284

== ENCOUNTER 2019-11-17 20:30 | Emergency (ER) | payer OTHER, MEDICAID ==
--- NOTE | 2019-11-17 21:13 | ER Document Report ---
HPI - HPI Patient complains to provider of: Cough Time Seen by Provider: 11/17/19 20:46 Onset: Last week Onset/Duration: Persistent Quality of pain: No pain Pain Level: Denies Context: Patient presents with nonproductive cough for the past week. Patient denies any fever or shortness of breath. Patient is currently 19 weeks G3, P1. Patient denies any urinary symptoms. Patient is here with her child who has upper respiratory symptoms as well. Associated Symptoms: Nonproductive cough. denies: Earache, Fever, Nausea, Vomiting, Sore throat Exacerbated by: Denies Relieved by: Denies Similar symptoms previously: No Recently seen / treated by doctor: No - ROS ROS below otherwise negative: Yes Systems Reviewed and Negative: Yes All other systems reviewed and negative - CONSTITUTIONAL Constitutional: DENIES: Fever, Chills - EENT EENT: DENIES: Sore Throat, Nasal Drainage-Clear, Congestion - CARDIOVASCULAR Cardiovascular: DENIES: Chest pain - RESPIRATORY Respiratory: REPORTS: Coughing. DENIES: Trouble Breathing - GASTROINTESTINAL Gastrointestinal: DENIES: Abdominal Pain, Nausea, Patient vomiting - REPRODUCTIVE Reproductive: REPORTS: : - MUSCULOSKELETAL Musculoskeletal: DENIES: Back Pain - DERM Skin Color: Normal Skin Problems: None Past Medical History - General Information source: Patient - Social History Smoking Status: Never Smoker Chew tobacco use (# tins/day): No Frequency of alcohol use: None Drug Abuse: None Occupation: Retail Lives with: Family Family History: DM, Malignancy Patient has suicidal ideation: No Patient has homicidal ideation: No - Medical History Medical History: Negative Renal/ Medical History: Denies: Hx Peritoneal Dialysis Past Surgical History: Reports: Hx Section - Immunizations Immunizations up to date: Yes Hx Diphtheria, Pertussis, Tetanus Vaccination: Yes - 2007 Vertical Provider Document - CONSTITUTIONAL Agree With Documented VS: Yes Exam Limitations: No Limitations General Appearance: WD/WN, No Apparent Distress - INFECTION CONTROL TRAVEL OUTSIDE OF THE [place] IN LAST 30 DAYS: No - HEENT HEENT: Atraumatic, Normocephalic. negative: Pharyngeal Exudate, Pharyngeal Tenderness, Pharyngeal Erythema - NECK Neck: Normal Inspection, Supple. negative: Lymphadenopathy-Left, Lymphadenopathy-Right - RESPIRATORY Respiratory: Breath Sounds Normal, No Respiratory Distress, Chest Non-Tender. negative: Rales, Rhonchi, Wheezing - CARDIOVASCULAR Cardiovascular: Regular Rate, Regular Rhythm, No Murmur - GI/ABDOMEN Gastrointestinal: Abdomen Soft - BACK Back: Normal Inspection - MUSCULOSKELETAL/EXTREMETIES Musculoskeletal/Extremeties: MAEW - NEURO Level of Consciousness: Awake, Alert, Appropriate Motor/Sensory: No Motor Deficit - DERM Integumentary: Warm, Dry, No Rash Course - Re-evaluation Re-evalutation: 11/17/19 22:54 Patient with normal chest x-ray. Patient is here with child who did test positive for influenza A. Patient is currently 19 weeks . Discussed with mother concern about exposure to influenza. Mother is agreeable with Tamiflu prescription at this time. - Vital Signs Vital signs: Temp Pulse Resp BP Pulse Ox 98.4 F 78 18 99/65 L 99 11/17/19 20:51 11/17/19 20:51 11/17/19 20:51 11/17/19 20:51 11/17/19 20:51 - Diagnostic Test Radiology reviewed: Reports reviewed Discharge - Discharge Clinical Impression: Exposure to influenza Upper respiratory infection Qualifiers: URI type: unspecified URI Qualified Code(s): J06.9 - Acute upper respiratory infection, unspecified Condition: Stable Disposition: HOME, SELF-CARE Instructions: Acetaminophen, Influenza ([facility]), Upper Respiratory Illness ([facility]) Additional Instructions: Return immediately for any new or worsening symptoms Followup with your primary care provider, call tomorrow to make a followup appointment Prescriptions: Oseltamivir Phosphate [Tamiflu 75 mg Capsule] 75 mg PO BID #10 capsule Referrals: KRISTIN REED MD [Primary Care Provider] - Follow up as needed
[2019-11-17 21:58] LABS: A TYPE INFLUENZA AG NEGATIVE (NEGATIVE); B INFLUENZA AG NEGATIVE (NEGATIVE)
--- NOTE | 2019-11-17 22:04 | RADIOLOGY REPORT (SQ) ---
EXAM DESCRIPTION: X-RAY CHEST ONE VIEW CLINICAL HISTORY: 34 years, Female, cough COMPARISON: None. FINDINGS: Portable upright chest at 2131 hours on 11/17/2019. The patient has an abdominal shield for . Safety pin artifact overlies the heart. The lungs are well expanded and clear. The costophrenic angles are sharp. The cardiac silhouette, hilar regions, trachea, soft tissues and bony structures are unremarkable. IMPRESSION: No acute cardiopulmonary disease.
[2019-11-17 22:59] VITALS: BP 108/59
== END 2019-11-17 23:11 | disposition home or self-care (01) ==
LOC: ER 20:30
DX: O26.92 Pregnancy related conditions, unspecified, second trimester (principal); J06.9 Acute upper respiratory infection, unspecified; Z3A.19 19 weeks gestation of pregnancy
CPT/HCPCS: 71045; 87804; 99283

== ENCOUNTER 2020-01-08 18:07 | Outpatient (CLI) | payer OTHER, MEDICAID ==
[2020-01-08 18:59] LABS: T.VAGINALIS (WET MOUNT) NO TRICHOMONAS SEEN; WBCS (WET MOUNT) 1+ WBCS SEEN; YEAST (WET MOUNT) YEAST SEEN
[2020-01-08 19:00] LABS: BACTERIA (WET MOUNT) 4+ BACTERIA SEEN; RBCS (WET MOUNT) RARE RBCS SEEN
[2020-01-08 19:06] LABS: AMORPHOUS SEDIMENT,URINE TRACE /HPF; APPEARANCE,URINE CLOUDY; BILIRUBIN,URINE NEGATIVE (NEGATIVE); COLOR,URINE YELLOW; GLUCOSE, URINE NEGATIVE (NEGATIVE); KETONES,URINE NEGATIVE (NEGATIVE); LEUKOCYTE ESTERASE,URINE NEGATIVE (NEGATIVE); NITRITE,URINE NEGATIVE (NEGATIVE); PROTEIN,URINE NEGATIVE (NEGATIVE); URINE SPECIFIC GRAVITY 1.008; UROBILINOGEN,URINE NEGATIVE mg/dL (<2.0)
[2020-01-08 19:15] LABS: URINE AMPHETAMINES SCREEN NEGATIVE; URINE BARBITURATES SCREEN NEGATIVE; URINE BENZODIAZEPINES SCREEN NEGATIVE; URINE COCAINE SCREEN NEGATIVE; URINE MARIJUANA (THC) SCREEN NEGATIVE; URINE METHADONE SCREEN NEGATIVE; URINE PHENCYCLIDINE SCREEN NEGATIVE
[2020-01-08] MEDS ORDERED: FLUCONAZOLE 100 MG TABLET PO ONE (19:37)
--- NOTE | 2020-01-08 19:43 | RADIOLOGY REPORT (SQ) ---
EXAM DESCRIPTION: U/S OB LIMITED IMAGES COMPLETED DATE/TIME: 01/08/2020 6:16 pm REASON FOR STUDY: vaginal bleeding, placenta loc, FWB, ?previa COMPARISON: None. TECHNIQUE: Limited transabdominal grayscale ultrasound for evaluation of specific requested obstetri armando parameters. LIMITATIONS: None. FINDINGS: CERVICAL LENGTH: 2.6 cm Closed. JOI: 13.8 cm. FHR: 157 beats per minute. PRESENTATION: Cephalic. PLACENTA: Anterior. No evidence of previa. ANATOMY: Not assessed OTHER: No other significant findings. IMPRESSION: No placenta previa. Placenta is anterior. Trimester of : Second trimester - 13 weeks 1 day to 27 weeks 6 days. TECHNICAL DOCUMENTATION: JOB ID: [id number] 2010 [employer]- All Rights Reserved Reading location - IP/workstation name: [email or web address]
[2020-01-08] MEDS ORDERED: FLUCONAZOLE 100 MG TABLET ONE (19:48)
[2020-01-08 20:34] LABS: CHLAM PCR NOT DETECTED (NOT DETECT)
[2020-01-08] MEDS ORDERED: AZITHROMYCIN 1 GM SUSP PACKET PO ONE (20:48)
[2020-01-08] MEDS ORDERED: CEFTRIAXONE INJ 250 MG VIAL IM ONE (20:48)
[2020-01-08] MEDS ORDERED: DIPHENHYDRAMINE HCL 50 MG CAPSULE PO ONE (20:52)
[2020-01-08] MEDS ORDERED: CEFTRIAXONE INJ 1000 MG VIAL ONE (20:58)
[2020-01-08] MEDS ORDERED: AZITHROMYCIN 250 MG TABLET ONE (20:58)
[2020-01-08] MEDS ORDERED: LIDOCAINE 1% INJ-PF (10 MG/ML) 30 ML SDV INJ ONE (20:59)
[2020-01-08] MEDS ORDERED: DIPHENHYDRAMINE HCL 25 MG CAPSULE ONE (20:59)
[2020-01-08] MEDS ORDERED: LIDOCAINE 1% INJ-PF (10 MG/ML) 30 ML SDV ONE (21:01)
[2020-01-08] MEDS ORDERED: AZITHROMYCIN 250 MG TABLET PO ONE (21:08)
[2020-01-08] MEDS ORDERED: CEFTRIAXONE INJ 500 MG VIAL IM ONE (21:30)
== END 2020-01-08 21:21 | disposition home or self-care (01) ==
LOC: LC 18:07
PROVIDERS: ATTEND Student in an Organized Health Care Education/Training Program
DX: O46.92 Antepartum hemorrhage, unspecified, second trimester (principal); Z3A.27 27 weeks gestation of pregnancy
CPT/HCPCS: 59899; 87210; 81001; 80307; 87491; 87591; 76815; J3490; J0696